=== PATIENT | male | born 1955 | race Caucasian/White ===

== ENCOUNTER 2018-07-31 16:23 | Emergency (ER) | payer MEDICARE, BC ==
[2018-07-31 16:32] VITALS: BP 154/104
[2018-07-31] MEDS ORDERED: BUFFERED LIDOCAINE 10 ML SYRINGE ONE (16:39)
--- NOTE | 2018-07-31 16:48 | ED Physician Documentation ---
PD HPI UPPER EXT INJURY - Stated complaint Stated Complaint: L MID FINGER LAC - Chief complaint Chief Complaint: Laceration - History obtained from History obtained from: Patient - History of Present Illness Location: Left (cut left third finger on a can in garbage can just [employer]. Tetanus is UTD.) Review of Systems Constitutional: reports: Reviewed and negative Throat: reports: Reviewed and negative Cardiac: reports: Reviewed and negative Respiratory: reports: Reviewed and negative PD PAST MEDICAL HISTORY - Past Medical History Past Medical History: No Cardiovascular: High cholesterol : Benign prostate hypertrophy Other Past Medical History: Bladder ca. - Past Surgical History Past Surgical History: Yes Ortho: Knee replacement, Shoulder arthroplasty, Arthroscopic surgery - Present Medications Home Medications: Ambulatory Orders Medication Instructions Recorded Confirmed Atorvastatin Calcium [Lipitor] 80 mg PO 07/31/18 Finasteride 1 mg PO 07/31/18 Multivitamin [Multivitamins] 1 each PO 07/31/18 Tamsulosin [Flomax] 0.4 mg PO ONCE 07/31/18 07/31/18 - Allergies Allergies/Adverse Reactions: Allergies Allergy/AdvReac Type Severity Reaction Status Date / Time No Known Drug Allergies Allergy Verified 07/31/18 16:41 - Social History Does the pt smoke?: Yes Smoking Status: Current every day smoker Does the pt drink ETOH?: No Does the pt have substance abuse?: No - Immunizations Immunizations are current?: Yes PD ED PE NORMAL - Vitals Vital signs reviewed: Yes - General General: Alert and oriented X 3, No acute distress - Extremities Extremities: Other (On the left middle finger, just proximal to the PIP, radial side there is a 1 cm laceration with active bleeding but he has normal cap refill and sensation at the tip.) - Neuro Neuro: Alert and oriented X 3, Normal speech Results - Vitals Vitals: Vital Signs - 24 hr 07/31/18 16:29 Temperature 36.2 C L Heart Rate 113 H Respiratory 18 Rate Blood Pressure 154/104 H O2 Saturation 95 Oxygen O2 Source Room air Procedures - Laceration (location) Left 3rd finger Length in cm: 1 Wound type: Linear Neurovascular status: Sensory intact, Motor intact Anesthesia: Lidocaine 1%, With bicarb Wound Preparation: Irrigated copiously NS Skin layer closure: Nylon, Interrupted, Size #-0 - enter number ([id number]), Sutures - enter # (4) Other: Tetanus UTD Complexity: Simple Departure - Departure Disposition: Home, Self Care Clinical Impression: Laceration Condition: Good Record reviewed to determine appropriate education?: Yes Instructions: ED Laceration Hand Comments: Come back for any signs of infection which would include: Redness, swelling, drainage, increased pain, or fevers. Follow-up with your physician in 14 days for suture removal. Your blood pressure was elevated today on check into the emergency department. This does not mean that you have hypertension, it is a common phenomenon to come to the emergency department and have elevated blood pressure. I recommend that you see your primary care physician within the week to have it rechecked when you are feeling better.
== END 2018-07-31 17:01 | disposition home or self-care (01) ==
LOC: ED 16:23
DX: S61.213A Laceration without foreign body of left middle finger without damage to nail, initial encounter (principal); W26.8XXA Contact with other sharp object(s), not elsewhere classified, initial encounter; R03.0 Elevated blood-pressure reading, without diagnosis of hypertension; F17.200 Nicotine dependence, unspecified, uncomplicated
CPT/HCPCS: 12001; 99282; 99283